=== PATIENT | female | born 1970 | race Caucasian/White ===

== ENCOUNTER → 2017-04-05 | Outpatient (CLI) | payer BC ==
--- NOTE | ~2017-04-05 | ST ---
Unit #: [id number] #: [id number] Patient: ADEOLA SKY [id number] [facility]. [address] [place], [place] [address] [id number] O MR#: [id number] NAME: ADEOLA SKY : 1970 SEX: F STUDY DATE/TIME: 04/05/2017 UNIT: [facility] ROOM: STUDY DESCRIPTION: Attending Physician: Italia Rubio M.D. Referring Physician: Italia Rubio M.D. Primary Care Physician: Italia Rubio M.D. CARDIOLOGY REPORT EXAM Exercise Cardiolite stress test. FINDINGS Baseline EKG: Normal sinus rhythm with ventricular rate 60 beats per minute, left atrial abnormality. T-wave inversion in lead III, V3, and V4. Left ventricular hypertrophy. PROCEDURE Patient walked on the treadmill for 11 minutes utilizing Wilberto protocol, achieving a workload of 13.4 METs. Next, 88% of maximum target heart rate achieved at 155 beats per minute with a maximum blood pressure response of 178/94 mmHg. Next, EKG during the test was equivocal to baseline. Some nonspecific ST-T wave abnormalities in inferolateral leads. Patient had no complaints of chest pain, palpitations, or dizziness. Had increased shortness of breath and fatigueness which resolved in recovery phase. IMPRESSION 1. Functional class III with a workload of 13.4 METs. 2. Patient walked for 11 minutes achieving 88% of maximum target heart rate at 155 beats per minute with a maximum blood pressure response of 178/94 mmHg. 3. The patient had no complaints of chest pain, palpitations, or dizziness. Had increased shortness of breath and fatigueness which resolved in recovery phase. 4. EKG during the test showed some nonspecific ST-T wave abnormalities in inferior anterolateral leads. Also, continues with a T-wave inversion as was on baseline. 5. Cardiolite was injected at maximum target heart rate. Radionuclide tests pending. Please correlate with nuclear images. 6. Patient had a good baseline exercise tolerance. Dictated by... Sarika Jacobo A.P.R.N. for Shereen Sanders TD: 04/05/2017 10:33 JOB #: [id number] Unit #: [id number] #: [id number] Patient: ADEOLA SKY CARDIOLOGY REPORT Page 1 of 1 X Sarika Jacobo APRN CARDIOLOGY REPORT
== END | disposition home or self-care (01) ==
LOC: CNUC 03-26 08:30
DX: R94.31 Abnormal electrocardiogram [ECG] [EKG] (principal)
CPT/HCPCS: 78452; 93017; A9500